=== PATIENT | male | born 1995 | race African-American/Black ===

== ENCOUNTER 2022-04-29 13:04 | Emergency (ER) | payer OTHER ==
[2022-04-29 13:52] VITALS: BP 113/78; PULSE 78; RESP 19; TEMP 98.6; BMI 19.2
== END 2022-04-29 15:43 | disposition home or self-care (01) ==
LOC: JERFT 13:04
DX: S93.491A Sprain of other ligament of right ankle, initial encounter (principal); Y93.67 Activity, basketball
CPT/HCPCS: 73610-TC-RT-FY; 99283-25